=== PATIENT | female | born 1950 | race Caucasian/White ===

== ENCOUNTER 2017-07-01 21:15 | Emergency (ER) | payer BC ==
[2017-07-01] MEDS ORDERED: Sodium Chloride 0.9% 500 ML IV SCH (22:15)
--- NOTE | 2017-07-01 22:35 | ED PDOC ---
HPI: Hypertension/Hypotension Time Seen by Provider: 07/01/17 21:37 Chief Complaint (Nursing): High Blood Pressure Chief Complaint (Provider): Hypertension History Per: Patient History/Exam Limitations: no limitations Onset/Duration Of Symptoms: Persistent Current Symptoms Are (Timing): Still Present Additional Complaint(s): 66yo female with history of swollen disk in her neck, hypertension, presents to ED with complaints of dizziness, described as a room spinning sensation. Patient states at 6pm today, when she came from home she had an episode of dizziness which was worse with movement. She states the episode lasted for several minutes but has improved since her arrival to the ER. Patient states she has been prescribed Lisinopril 10mg but is non-compliant with the medication ; she skips the medication for a few days if she has been exercising. She reports taking a dose of Lisinopril at 6pm but when she repeated her blood pressure, it was still elevated, which prompted the visit. Patient states her hypertension is also exacerbated with swelling of the disk in her neck and she is unsure if her dizziness is related to that. Patient reports she also watches her diet including her salt intake. Otherwise: (-) lightheadedness, (-) trauma, (-) headache, (-) tinnitus, (-) hearing loss, (-) chest pain, (-) dyspnea, (-) fever, (-) vomiting, (-) diarrhea, (-) syncope, (-) GI bleeding. Past Medical History Reviewed: Historical Data, Nursing Documentation, Vital Signs Vital Signs: Last Vital Signs Temp 97.4 F L 07/01/17 21:25 Pulse 73 07/01/17 21:25 Resp 18 07/01/17 21:25 BP 186/93 H 07/01/17 21:25 Pulse Ox 99 07/01/17 21:25 - Medical History PMH: Anxiety, Fibromyalgia, HTN, Hypercholesterolemia, Hypothyroidism, Rheumatoid Arthritis - Surgical History Surgical History: Tonsillectomy - Family History Family History: States: No Known Family Hx, Unknown Family Hx - Home Medications Home Medications: Ambulatory Orders Medication Instructions Recorded Ondansetron ODT [Zofran ODT] 8 mg PO Q8 PRN #12 odt 02/28/14 Oxycodone HCl/Acetaminophen 1 tab PO Q6 PRN #12 tab 02/28/14 [Percocet 325 mg-5 mg] diaZEpam [Valium] 5 mg PO Q8 PRN #15 tab 02/28/14 Prednisone 50 mg PO DAILY #5 tab 12/02/14 diaZEpam [Valium] 5 mg PO BID PRN #6 tab 12/02/14 traMADol [Ultram] 50 mg PO TID PRN #12 tab 12/02/14 Nitrofurantoin Macrocrystals 100 mg PO BID #10 cap 03/25/15 [Macrobid] Meclizine [Meclizine*] 25 mg PO Q6 PRN #20 tab 07/02/17 Ondansetron ODT [Zofran ODT] 4 mg PO DAILY PRN #20 odt 07/02/17 - Allergies Allergies/Adverse Reactions: Allergies Allergy/AdvReac Type Severity Reaction Status Date / Time No Known Allergies Allergy Verified 02/28/14 09:46 Review of Systems ROS Statement: Except As Marked, All Systems Reviewed And Found Negative Constitutional: Negative for: Fever, Chills Cardiovascular: Negative for: Chest Pain, Light Headedness Respiratory: Negative for: Shortness of Breath Gastrointestinal: Negative for: Vomiting, Abdominal Pain, Diarrhea Neurological: Positive for: Dizziness. Negative for: Headache Physical Exam - Physical Exam Comments: GENERALIZED APPEARANCE:Patient is awake, alert, oriented x3 in no acute distress. SKIN: Warm, dry; (-) cyanosis. HEAD: (-) scalp swelling or tenderness. EYES: (-) conjunctival pallor. ENMT: Mucous membranes dry. NECK: (-) tenderness, (-) stiffness, (-) lymphadenopathy. CHEST AND RESPIRATORY: (-) rales, (-) rhonchi, (-) wheezes; breath sounds equal bilaterally. HEART AND CARDIOVASCULAR: (-) irregularity; (-) murmur, (-) gallop. ABDOMEN AND GI: Soft; (-) distention, (-) tenderness, (-) rebound, (-) guarding , (-) palpable masses, (-) flank tenderness. EXTREMITIES: (-) deformity; (-) edema. Distal pulses: present. NEURO AND PSYCH: Mental status as above. hemmer lockstitch: (+) horizontal nystagmus; Pupils EOMI, (-) facial asymmetry; (-) dysarthria; tongue and uvula midline. Strength symmetric. Gait: normal. - Laboratory Results Result Diagrams: 07/01/17 22:35 07/01/17 22:35 - ECG O2 Sat by Pulse Oximetry: 99 (RA) Pulse Ox Interpretation: Normal Medical Decision Making Medical Decision Making: Impression: Dizziness Plan: -- CT Head w/o contrast -- CT C-Spine w/o contrast -- Labs -- EKG -- Chest X-Ray -- IV Fluids -- Meclizine 25mg PO -- Zofran 4mg PO EKG : NSR at 66 bpm, no acute ST changes, as read by PA CXR : NAD, as read by AVELINA Labs reviewed : cbc is wnl, trop (-), LFTs mildly elevated VS : P78 BP156/96 R16 [id number] CT head w/o contrast: FINDINGS: Brain: Mild atrophy. No intracranial hemorrhage. No mass. No definite edema. Ventricles: No hydrocephalus. Bones/joints: No acute fracture. Several small lucent calvarial lesions, nonspecific. Probable bone islands. Soft tissues: Unremarkable. Sinuses: Scattered minimal to mild mucosal thickening. Mastoid air cells: No mastoid effusion. Orbits: Unremarkable as visualized. IMPRESSION: 1. No definite acute intracranial abnormality. 2. Incidental/non-acute findings are described above. Dictated and Authenticated by: Korey Cross MD 07/02/2017 1:07 AM Eastern Time ([place] & [place]) CT cervical spine w/o contrast : FINDINGS: Vertebrae: No acute fracture. Several small lucent lesions throughout vertebral bodies, nonspecific. Degenerative anterolisthesis of C4 on C5. Facet osteoarthrosis. Discs/spinal canal/neural foramina: Early to mild degenerative disc disease at C3-C4, C4-C5, C5- C6, C6-C7 levels. No significant central canal stenosis. Neuroforaminal narrowing at C6-C7 level. Soft tissues: Unremarkable. Vasculature: Mild atherosclerotic disease. Sinuses: Scattered mild mucosal thickening of visualized sinuses. Lung apices: Mild mosaic pattern of lung parenchyma/mild interlobular septal thickening, nonspecific. IMPRESSION: 1. No fracture. 2. Lucent lesions, nonspecific. Recommend nonemergent MRI. 3. Incidental/non-acute findings are described above. Dictated and Authenticated by: Korey Cross MD 07/02/2017 1:42 AM Eastern Time ([place] & [place]) On re-evaluation, patient reports improvement of symptoms, denies any dizziness or headache. Patient reports of neck pain and is asking for pain medication. On exam, patient remains AAOx3, in no acute distress. Repeat neuro exam shows no focal findings. Patient ambulating in the ER with a steady gait. Given morphine 4 mg IV and zofran 4 mg ODT PO. Diagnostic results d/w the patient in great detail. Diagnosis of vertigo, likely due to uncontrolled hypertension, and chronic neck pain d/w the patient. Advised to be complaint with her BP medication. Based on history, exam and diagnostic results, plan will be for outpatient follow up. Patient instructed to follow-up with pmd in 1-2 days without fail. Advised to take medication as prescribed. Return to the emergency room at any time for any new or worsening symptoms. Patient states she fully agrees with and understands discharge instructions. States that she agrees with the plan and disposition. Verbalized and repeated discharge instructions and plan. I have given the patient opportunity to ask any additional questions. Scribe Attestation: Documented by Elizabeth Garcia acting as a scribe for AVELINA Ariza Provider Attestation: All medical record entries made by the Scribe were at my direction and personally dictated by me. I have reviewed the chart and agree that the record accurately reflects my personal performance of the history, physical exam, medical decision making, and the department course for this patient. I have also personally directed, reviewed, and agree with the discharge instructions and disposition. Disposition - Clinical Impression Clinical Impression: Vertigo, Hypertension, Chronic neck pain - Patient ED Disposition Is Patient to be Admitted: No Counseled Patient/Family Regarding: Studies Performed, Diagnosis, Need For Followup, Rx Given - Disposition Disposition: Routine/Home Disposition Time: 02:30 Condition: IMPROVED Additional Instructions: Thank you for letting us take care of you today. You were treated for vertigi, HTN, chronic neck pain. The emergency medical care you received today was directed at your acute symptoms. If you were prescribed any medication, please fill it and take as directed. It may take several days for your symptoms to resolve. Return to the Emergency Department if your symptoms worsen, do not improve, or if you have any other problems. Please contact your doctor in 2 days for re-evaluation and follow up. Bring any paperwork you were given at discharge with you along with any medications you are taking to your follow up visit. Our treatment cannot replace ongoing medical care by a primary care provider (PCP) outside of the emergency department. Thank you for allowing the [facility] team to be part of your care today. If you had a CT : A Radiologist will review the ED reading if any change in treatment is needed we will contact you. Prescriptions: Meclizine [Meclizine*] 25 mg PO Q6 PRN #20 tab PRN Reason: Dizziness Ondansetron ODT [Zofran ODT] 4 mg PO DAILY PRN #20 odt PRN Reason: Nausea/Vomiting Instructions: Vertigo (a Type of Dizziness), High Blood Pressure (DC), Chronic Neck Pain (DC) Forms: [employer] (E[place]ian) - PA / [place] [employer] / Resident Statement MD/DO has reviewed & agrees with the documentation as recorded.
[2017-07-01 22:46] LABS: BASO # 0.1 K/uL (0.0-0.2); BASO % 0.8 % (0.0-2.0); EOS # 0.2 K/uL (0.0-0.7); HEMOGLOBIN 15.4 g/dL (12.0-16.0); LYMPH # 1.5 K/uL (1.0-4.3); LYMPH % 24.3 % (20.0-40.0); MEAN CELL VOLUME 93.5 fl (81.0-99.0); MEAN CORPUSCULAR HEMOGLOBIN 31.3 pg (27.0-31.0); MEAN CORPUSCULAR HGB CONC 33.5 g/dL (33.0-37.0); MEAN PLATELET VOLUME 8.4 fl (7.2-11.7); MONO # 0.5 K/uL (0.0-0.8); MONO % 8.5 % (0.0-10.0); NEUT # 3.8 K/uL (1.8-7.0); NEUT % 62.4 % (50.0-75.0); RBC 4.92 Mil/uL (3.80-5.20); RED CELL DISTRIBUTION WIDTH 12.7 % (11.5-14.5)
[2017-07-01 22:47] VITALS: RESP 16
[2017-07-01 22:55] LABS: ALBUMIN 4.4 g/dL (3.5-5.0); ALT/SGPT 90 U/L (9-52); AST/SGOT 61 U/L (14-36); BLOOD UREA NITROGEN 15 mg/dl (7-17); CALCIUM 9.5 mg/dL (8.4-10.2); GFR AFRICAN-AMERICAN > 60; GFR NON-AFRICAN AMERICAN > 60
[2017-07-01 23:24] LABS: PARTIAL THROMBOPLASTIN TIME 34.9 Seconds (25.6-37.1)
--- NOTE | 2017-07-02 01:07 | CT ---
EXAM: CT Head Without Intravenous Contrast CLINICAL HISTORY: 66 years old, female; Signs and symptoms; Dizziness TECHNIQUE: Axial computed tomography images of the head/brain without intravenous contrast. All CT scans at this facility use one or more dose reduction techniques, viz.: automated exposure control; ma/kV adjustment per patient size (including targeted exams where dose is matched to indication; i.e. head); or iterative reconstruction technique. Coronal and sagittal reformatted images were created and reviewed. COMPARISON: No relevant prior studies available. FINDINGS: Brain: Mild atrophy. No intracranial hemorrhage. No mass. No definite edema. Ventricles: No hydrocephalus. Bones/joints: No acute fracture. Several small lucent calvarial lesions, nonspecific. Probable bone islands. Soft tissues: Unremarkable. Sinuses: Scattered minimal to mild mucosal thickening. Mastoid air cells: No mastoid effusion. Orbits: Unremarkable as visualized. IMPRESSION: 1. No definite acute intracranial abnormality. 2. Incidental/non-acute findings are described above.
--- NOTE | 2017-07-02 01:43 | CT ---
EXAM: CT Cervical Spine Without Intravenous Contrast CLINICAL HISTORY: 66 years old, female; Pain; Other: Swollen disc; Additional info: Pain, h/o swollen disc TECHNIQUE: Axial computed tomography images of the cervical spine without intravenous contrast. All CT scans at this facility use one or more dose reduction techniques, viz.: automated exposure control; ma/kV adjustment per patient size (including targeted exams where dose is matched to indication; i.e. head); or iterative reconstruction technique. COMPARISON: No relevant prior studies available. FINDINGS: Vertebrae: No acute fracture. Several small lucent lesions throughout vertebral bodies, nonspecific. Degenerative anterolisthesis of C4 on C5. Facet osteoarthrosis. Discs/spinal canal/neural foramina: Early to mild degenerative disc disease at C3-C4, C4-C5, C5-C6, C6-C7 levels. No significant central canal stenosis. Neuroforaminal narrowing at C6-C7 level. Soft tissues: Unremarkable. Vasculature: Mild atherosclerotic disease. Sinuses: Scattered mild mucosal thickening of visualized sinuses. Lung apices: Mild mosaic pattern of lung parenchyma/mild interlobular septal thickening, nonspecific. IMPRESSION: 1. No fracture. 2. Lucent lesions, nonspecific. Recommend nonemergent MRI. 3. Incidental/non-acute findings are described above.
[2017-07-02 03:32] VITALS: BP 161/93; PULSE 73; TEMP 98
[2017-07-02 05:13] VITALS: O2SAT 99
--- NOTE | 2017-07-02 08:09 | RAD ---
PROCEDURE: CHEST RADIOGRAPH, 1 VIEW HISTORY: dizziness COMPARISON: None available. FINDINGS: LUNGS: Clear. PLEURA: No pneumothorax or pleural fluid seen. CARDIOVASCULAR: Normal. OSSEOUS STRUCTURES: No significant abnormalities. VISUALIZED UPPER ABDOMEN: Normal. OTHER FINDINGS: None. IMPRESSION: No active disease.
--- NOTE | 2017-07-02 08:34 | CARD ---
APPROVED REPORT EKG Measurement Heart [id number] <Conclusion> Normal sinus rhythm Normal ECG
== END 2017-07-02 03:33 | disposition home or self-care (01) ==
LOC: H.ER 21:15
DX: R42 Dizziness and giddiness (principal); I10 Essential (primary) hypertension; M54.2 Cervicalgia; E03.9 Hypothyroidism, unspecified; E78.00 Pure hypercholesterolemia, unspecified; M79.7 Fibromyalgia
CPT/HCPCS: 70450; 71045; 72125; 80053; 84484; 85025; 85610; 85730; 93005; 96360; 99284; J7040